=== PATIENT | male | born 1965 | race Caucasian/White ===

== ENCOUNTER 2018-11-16 20:27 | Emergency (ER) | payer SELFPAY ==
[~2018-11-16] VITALS: Ht 175.3 cm; Wt 99.8 kg
[~2018-11-16 20:27] MED LIST: ALLERGY-TIME4 MG PO; GUAIFENESIN1200 MG PO; Veetids 500500 MG PO
[2018-11-16] MEDS ORDERED: Amoxicillin500 MG PO (21:48)
== END 2018-11-16 22:01 | disposition home or self-care (01) ==
LOC: ER 20:27
DX: K08.89 Other specified disorders of teeth and supporting structures (principal); H66.92 Otitis media, unspecified, left ear; J32.9 Chronic sinusitis, unspecified; Z87.891 Personal history of nicotine dependence
CPT/HCPCS: 99282

== ENCOUNTER 2020-09-25 18:09 | Emergency (ER) | payer SELFPAY ==
[~2020-09-25] VITALS: Ht 175.3 cm; Wt 113.4 kg
[~2020-09-25 18:09] MED LIST changes: +Amoxicillin500 MG PO
[2020-09-25] MEDS ORDERED: Veetids 500500 MG PO (19:46)
== END 2020-09-25 20:00 | disposition home or self-care (01) ==
LOC: ER 18:09
DX: K04.7 Periapical abscess without sinus (principal); Z87.891 Personal history of nicotine dependence
CPT/HCPCS: 41800; 99282-25; A9270